=== PATIENT | female | born 1960 | race Caucasian/White ===

== ENCOUNTER → 2020-11-15 | Outpatient (CLI) | payer OTHER ==
--- NOTE | 2020-11-15 15:38 | RAD ---
Examination: 1. Right hip 2 views 2. L spine 2 views. INDICATION: Degenerative disc disease and back pain with right hip pain. COMPARISON: None. FINDINGS: AP and frog-leg lateral views of the right hip show advanced degenerative changes with [id number] c ontact between the femoral head and the acetabulum and subchondral sclerosis. No fracture. No aggress davon bony lesions. No dislocation. Soft tissues unremarkable. AP and lateral views of the lumbar spine show hypoplastic ribs at T12 with 5 lumbar type vertebrae be low that. Alignment is anatomic. Vertebral body heights are preserved and no acute or aggressive appe aring osseous lesions are seen. No fractures noted. There is multilevel disc degenerative change with varying degrees of disc space narrowing most conspicuous at L5-S1 and at the dorsal aspect of L2-L3. Multilevel facet hypertrophy is also present, likely resulting in at least moderate foraminal stenos is at L4-L5 and L5-S1 bilaterally. Sacroiliac joints are unremarkable. Soft tissues show no significa nt additional findings. The AP view of the lumbar spine incidentally includes both hips and shows rig ht greater than left bilateral advanced hip degenerative changes. IMPRESSION: 1. Severe right hip degenerative change without fracture or dislocation. 2. Multilevel lumbar spinal degenerative changes including the disks and facet joints, likely resulti ng in foraminal stenosis at L4-5 and L5-S1. Electronically signed by: John Walls MD (11/15/2020 3:36 PM) [id number]
== END ==
LOC: RAD 08:45
PROVIDERS: ATTEND Surgery
DX: M16.11 Unilateral primary osteoarthritis, right hip (principal); M47.816 Spondylosis without myelopathy or radiculopathy, lumbar region; M51.36 Other intervertebral disc degeneration, lumbar region; M19.019 Primary osteoarthritis, unspecified shoulder
CPT/HCPCS: 72100; 73502